=== PATIENT | female | born 1975 | race Two or more races ===

== ENCOUNTER 2016-12-20 10:37 | Emergency (ER) | payer MEDICAID ==
[~2016-12-20] VITALS: Ht 167.6 cm; Wt 82.7 kg
[2016-12-20 13:40] LABS: BASOPHIL % 0.1 % (0-2); PLATELET COUNT 268 x10^3mcL (130-400); RED CELL DISTRIBUTION WIDTH 13.7 % (11.5-14.5)
[2016-12-20 13:43] VITALS: BP 104/65
[2016-12-20 13:52] LABS: microscopic required? YES; urine erythrocyte 3+ (NEGATIVE)
[2016-12-20 13:53] LABS: CALCIUM 8.3 mg/dL (8.5-10.1); CARBON DIOXIDE 23.3 mmol/L (21-32); CHLORIDE SERUM 103 mmol/L (98-107); CREATININE SERUM 0.8 mg/dL (0.6-1.0); GFR1 > 60 mL/min; GLUCOSE SERUM 94 mg/dL (74-106); POTASSIUM SERUM 3.4 mmol/L (3.5-5.1); SODIUM SERUM 138 mmol/L (136-145)
[2016-12-20 13:58] LABS: ALKALINE PHOSPHATASE 82 U/L (46-116); ALT/SGPT 37 U/L (14-59); AST/SGOT 25 U/L (15-37); BILIRUBIN TOTAL 0.3 mg/dL (0.20-1.00); TOTAL PROTEIN, SERUM 7.2 g/dL (6.4-8.2)
[2016-12-20 13:59] LABS: ALBUMIN 3.2 g/dL (3.4-5.0)
== END 2016-12-20 14:56 | disposition home or self-care (01) ==
LOC: ED 10:37
PROVIDERS: Emergency Medicine
DX: N39.0 Urinary tract infection, site not specified (principal); M79.1 Myalgia; Z79.1 Long term (current) use of non-steroidal anti-inflammatories (NSAID)

== ENCOUNTER 2018-01-17 14:32 | Emergency (ER) | payer SELFPAY ==
[~2018-01-17] VITALS: Ht 167.6 cm; Wt 81.2 kg
[2018-01-17 14:35] VITALS: Ht 167.6 cm; Wt 81.2 kg
[2018-01-17 15:49] VITALS: BP 98/62
== END 2018-01-17 15:49 | disposition home or self-care (01) ==
LOC: ED 14:32
DX: M72.2 Plantar fascial fibromatosis (principal)

== ENCOUNTER 2019-01-11 10:05 | Emergency (ER) | payer OTHER ==
[~2019-01-11] VITALS: Ht 167.6 cm; Wt 73.5 kg
[2019-01-11 10:14] VITALS: BP 92/65; Ht 167.6 cm; Wt 73.5 kg
== END 2019-01-11 12:00 | disposition home or self-care (01) ==
LOC: ED 10:05
DX: S46.911A Strain of unspecified muscle, fascia and tendon at shoulder and upper arm level, right arm, initial encounter (principal); L29.9 Pruritus, unspecified; X58.XXXA Exposure to other specified factors, initial encounter; Y93.89 Activity, other specified; Y92.89 Other specified places as the place of occurrence of the external cause; Y99.8 Other external cause status
CPT/HCPCS: J1885

== ENCOUNTER 2019-05-05 11:36 | Emergency (ER) | payer OTHER ==
[~2019-05-05] VITALS: Ht 167.6 cm; Wt 73.5 kg
[2019-05-05 11:41] VITALS: Ht 167.6 cm; Wt 73.5 kg
[2019-05-05 12:22] VITALS: BP 110/56
== END 2019-05-05 12:22 | disposition home or self-care (01) ==
LOC: ED 11:36
DX: B34.9 Viral infection, unspecified (principal)

== ENCOUNTER 2019-06-29 10:31 | Emergency (ER) | payer OTHER ==
[~2019-06-29] VITALS: Ht 165.1 cm; Wt 73.5 kg
[2019-06-29 10:44] VITALS: Ht 165.1 cm; Wt 73.5 kg
[2019-06-29 12:00] LABS: BASOPHIL % 0.2 % (0-2); PLATELET COUNT 267 x10^3mcL (130-400); RED CELL DISTRIBUTION WIDTH 13.6 % (11.5-14.5)
[2019-06-29 12:05] LABS: ALKALINE PHOSPHATASE 69 U/L (46-116); ALT/SGPT 30 U/L (14-59); AST/SGOT 22 U/L (15-37); BILIRUBIN TOTAL 0.3 mg/dL (0.20-1.00); CARBON DIOXIDE 27.1 mmol/L (21-32); CHLORIDE SERUM 104 mmol/L (98-107); CREATININE SERUM 0.8 mg/dL (0.6-1.0); GFR1 > 60 mL/min; GLUCOSE SERUM 90 mg/dL (74-106); LIPASE 110 IU/L (73-393); POTASSIUM SERUM 4.1 mmol/L (3.5-5.1); SODIUM SERUM 138 mmol/L (136-145); TOTAL PROTEIN, SERUM 7.4 g/dL (6.4-8.2)
[2019-06-29 12:32] LABS: microscopic required? YES; urine erythrocyte 3+ (NEGATIVE)
[2019-06-29 12:34] LABS: CALCIUM 8.4 mg/dL (8.5-10.1)
[2019-06-29 13:03] VITALS: BP 119/71
== END 2019-06-29 13:03 | disposition home or self-care (01) ==
LOC: ED 10:31
PROVIDERS: Emergency Medicine
DX: N39.0 Urinary tract infection, site not specified (principal)
CPT/HCPCS: J1885; J2405; J7030